=== PATIENT | female | born 1965 | race Two or more races ===

== ENCOUNTER 2024-10-18 11:46 | Emergency (ER) | payer OTHER ==
[~2024-10-18] VITALS: Ht 152.4 cm; Wt 67.1 kg
[2024-10-18] MEDS ORDERED: ONDA4TAB5 PO (12:07)
[2024-10-18] MEDS ORDERED: FAMO-131 PO (12:07)
[2024-10-18 12:17] LABS: PLATELET COUNT (AUTO) 318 K/uL (150-450); RED BLOOD CELL COUNT(AUTO) 4.58 MIL/uL (4.0-5.2); RED CELL DISTRIBUTION WIDTH 14.1 % (11.5-15.0); WHITE BLOOD COUNT (AUTO) 7.3 K/uL (4.3-11.0)
[2024-10-18] MEDS: IV NS 0.9% 1,000 ML BAG IV ONE (12:17)
[2024-10-18] MEDS ORDERED: MAG HYDROX/AL HYDROX/SIMETH 30 ML UDC ONE (12:22)
[2024-10-18 12:23] LABS: APPEARANCE,URINE CLEAR (CLEAR); BLOOD, URINE 1+ Ery/uL (NEGATIVE); LEUKOCYTE ESTERASE ,URINE NEGATIVE (NEGATIVE); NITRITE, URINE NEGATIVE (NEGATIVE); UGLUCOSE NEGATIVE (NEGATIVE)
[2024-10-18] MEDS ORDERED: LIDOCAINE VISCOUS 2% UD 15 ML UDC ONE (12:24)
[2024-10-18] MEDS ORDERED: ONDANSETRON HCL/PF 4 MG/2 ML VIAL ONE (12:24)
[2024-10-18] MEDS ORDERED: FAMOTIDINE/PF INJ 20 MG/2 ML VIAL IV ONE (12:26)
[2024-10-18 12:32] LABS: CALCIUM, SERUM 9.2 mg/dL (8.5-10.1); CREATININE 0.6 mg/dL (0.6-1.3); SODIUM SERUM 142.0 mmol/L (136-145); UREA NITROGEN, BLOOD 18.0 mg/dL (7-18)
[2024-10-18 12:39] LABS: ASPARTATE AMINOTRANSFERASE 26.0 U/L (15-37); TOTAL PROTEIN, SERUM 8.2 g/dL (6.4-8.2)
[2024-10-18] MEDS: MAG HYDROX/AL HYDROX/SIMETH 30 ML UDC PO ONE (12:43)
[2024-10-18] MEDS: FAMOTIDINE/PF INJ 20 MG/2 ML VIAL IV ONE (12:43)
[2024-10-18] MEDS: LIDOCAINE VISCOUS 2% UD 15 ML UDC MM ONE (12:44)
[2024-10-18] MEDS: ONDANSETRON HCL/PF 4 MG/2 ML VIAL IVP ONE (12:44)
[2024-10-18 12:50] LABS: ADD URINE CULTURE NO; SQUAMOUS EPITHELIAL CELL,UR 0-2 /HPF (None Seen)
[2024-10-18 14:19] VITALS: BP 120/83; TEMP 98.2; O2SAT 99
== END 2024-10-18 14:21 | disposition home or self-care (01) ==
LOC: ER 12:03
DX: R10.13 Epigastric pain (principal); R11.0 Nausea; R14.0 Abdominal distension (gaseous); G89.29 Other chronic pain; Z98.890 Other specified postprocedural states
CPT/HCPCS: 99285; 74176; 96374; 96361; 96375; 85025; 80048; 83690; 80076; 81001; 36415; J1308; J2405; J7030